=== PATIENT | female | born 1980 | race Asian ===

== ENCOUNTER 2023-01-07 12:56 | Emergency (ER) | payer OTHER ==
[~2023-01-07] VITALS: Ht 165.1 cm; Wt 138.8 kg
[2023-01-07] MEDS ORDERED: FLUTICASONE PRO12 G1 INH (13:15)
[2023-01-07] MEDS ORDERED: LEVOTHYROXINE50 MCG PO (13:16)
[2023-01-07] MEDS ORDERED: GABAPENTIN300 MG PO (13:30)
[2023-01-07] MEDS ORDERED: ATORVASTATIN CA20 MG PO (13:36)
[2023-01-07] MEDS ORDERED: LABETALOL HCL100 MG PO (13:36)
[2023-01-07] MEDS ORDERED: MONTELUKAST SOD10 MG PO (13:36)
[2023-01-07] MEDS ORDERED: CYCLOBENZAPRINE10 MG PO (16:33)
--- NOTE | 2023-01-07 17:11 | EKG ---
[facility] [address] [facility] [place] [address] Signed Normal sinus rhythm with sinus arrhythmia Normal ECG No previous ECGs available Confirmed by EWA CONTRERAS MD ([id number]) on 01/07/2023 5:11:00 PM Electronically Signed By: EWA CONTRERAS MD 01/07/23 1711 PATIENT NAME: MADISON GARCIA Electrocardiogram DATE OF : 82 PHYSICIAN: EWA CONTRERAS MD REPORT #: [id number] REPORT IS CONFIDENTIAL AND NOT TO BE RELEASED WITHOUT AUTHORIZATION
== END 2023-01-07 16:46 | disposition home or self-care (01) ==
LOC: ED 12:56
DX: R07.9 Chest pain, unspecified (principal); M54.12 Radiculopathy, cervical region; Z88.2 Allergy status to sulfonamides; Z88.0 Allergy status to penicillin; Z79.899 Other long term (current) drug therapy
CPT/HCPCS: 36415; 71045; 80053; 83735; 83880; 84484; 85025; 93005; 93010; 99285-25; A9270

== ENCOUNTER 2024-08-07 05:55 | Day surgery (SDC) | payer OTHER ==
[2024-08-05 08:50] VITALS: BP 135/88
[~2024-08-07] VITALS: Ht 165.1 cm; Wt 139.5 kg
[~2024-08-07 05:55] MED LIST: ALOGLIPTIN25 MG PO; ATORVASTATIN CA20 MG PO; CYCLOBENZAPRINE10 MG PO; FLEVOXIN TABLE1 EACH PO; FLONASE SENSIM5.9 ML NS; FLUTICASONE PRO12 G1 INH; GABAPENTIN800 MG PO; HYDRALAZINE HCL10 MG PO; HYDROCHLOROTHIA25 MG PO; K-TAB ER20 MEQ PO; LABETALOL HCL100 MG PO; LACTATED RINGER'S 1,000 ML IV SCH; LEVOTHYROXINE75 MCG PO; LORATADINE10 MG PO; METFORMIN HCL1000 MG PO; METHOCARBAMOL750 MG PO; MONTELUKAST SOD10 MG PO; OMEPRAZOLE20 MG PO; TRULICITY1.5 MG/0.5 SUB-Q; VITAMIN D21250 MCG PO; ZANAFLEX4 MG PO
[2024-08-07 06:03] VITALS: BP 146/73
[2024-08-07] MEDS ORDERED: fentaNYL citrate 100 MCG/2 ML VIAL ONE (06:53)
[2024-08-07] MEDS ORDERED: KETOROLAC TROMETHAMINE 30 MG/ML VIAL ONE (06:53)
[2024-08-07] MEDS ORDERED: ACETAMINOPHEN 1,000 MG/100 ML VIAL ONE (06:53)
[2024-08-07] MEDS ORDERED: LIDOCAINE HCL 2% 5 ML SDV ONE (06:53)
[2024-08-07] MEDS ORDERED: propofoL 200 MG/20 ML VIAL ONE (06:53)
[2024-08-07] MEDS ORDERED: MIDAZOLAM HCL 2 MG/2 ML VIAL ONE (06:53)
[2024-08-07] MEDS ORDERED: ondansetron HCL 4 MG/2 ML VIAL ONE (06:53)
[2024-08-07] MEDS ORDERED: SUGAMMADEX SODIUM 200 MG/2 ML ML ONE (06:55)
[2024-08-07] MEDS ORDERED: SUCCINYLCHOLINE IN 0.9% NACL 200 MG/10 ML SYRINGE ONE (06:55)
[2024-08-07] MEDS ORDERED: ROCURONIUM BROMIDE 50 MG/5 ML SYR ONE (06:55)
[2024-08-07] MEDS ORDERED: IBLOOD GLUCOSE TEST STRIP 1 EA TEST VI PRN ×2 (07:00→07:45)
[2024-08-07] MEDS ORDERED: METOCLOPRAMIDE HCL 10 MG/2 ML SDV IV SCH (07:00)
[2024-08-07] MEDS ORDERED: LIDOCAINE HCL 1% 5 ML SDV INJ ONE (07:00)
[2024-08-07] MEDS ORDERED: FAMOTIDINE 20 MG/ 2 ML VIAL IV SCH (07:00)
[2024-08-07] MEDS ORDERED: droPERidol 5 MG/2 ML VIAL IV PRN (07:45)
[2024-08-07] MEDS ORDERED: NALOXONE HCL 0.4 MG SYR IV PRN ×2 (07:45→08:15)
[2024-08-07] MEDS ORDERED: PROCHLORPERAZINE EDISYLATE 10 MG/2 ML VIAL IV PRN ×2 (07:45→08:15)
[2024-08-07] MEDS ORDERED: ondansetron HCL 4 MG/2 ML VIAL IV PRN ×2 (07:45→08:15)
[2024-08-07] MEDS ORDERED: fentaNYL citrate 50 MCG/ML SDV IV PRN (07:45)
[2024-08-07] MEDS ORDERED: HYDROmorphone HCL 1 MG/ML SYR IV PRN (07:45)
[2024-08-07] MEDS ORDERED: ALBUTEROL SULFATE 8 GM INH ONE (08:06)
--- NOTE | 2024-08-07 08:08 | NUR ---
08/07/24 0808 Yari Page 0800-PATIENT ARRIVED TO PACU ON 6L MASK RR EVEN PATIENT HOB ELEVATED DROWSY COUGHING. JACLYN NOVAK ADMINISTERED 25 MCG FENTANYL IVP. SR. IVF INFUSING. LOBO PAD INTACT. ORIENTED TO PACU. 0803-PATIENT DROWSY DENIES PAIN OR NAUSEA. 6L MASK RR EVEN 100% PATIENT DOES NOT HAVE CPAP.
[2024-08-07] MEDS ORDERED: IBUPROFEN 800 MG TAB PO PRN (08:15)
[2024-08-07] MEDS ORDERED: ondansetron HCL 4 MG TAB PO PRN (08:15)
[2024-08-07] MEDS ORDERED: MAGNESIUM HYDROXIDE/AL HYDROX 30 ML CUP PO PRN (08:15)
[2024-08-07] MEDS ORDERED: MORPHINE SULFATE 10 MG/ML VIAL IV PRN (08:15)
[2024-08-07] MEDS ORDERED: FAMOTIDINE 20 MG TAB PO PRN (08:15)
[2024-08-07] MEDS ORDERED: HYDROCODONE/ACETA 5/325 TAB PO PRN (08:15)
[2024-08-07] MEDS ORDERED: METOCLOPRAMIDE HCL 10 MG/2 ML SDV IV PRN (08:15)
[2024-08-07] MEDS ORDERED: LACTATED RINGER'S 1,000 ML IV SCH (08:15)
[2024-08-07] MEDS ORDERED: MOTRIN IB200 MG PO (08:18)
[2024-08-07 08:34] VITALS: BP 118/69
--- NOTE | 2024-08-07 08:38 | NUR ---
JEAN 0835: PT ARRIVES BACK TO DS FROM PACU. SHE IS SLIGHTLY SLEEPY, NO C/O PAIN OR NAUSEA. SHE IS SIPPING ON WATER. CALL LIGHT WITHIN REACH. DENIES WANTING TO SNACK ON ANYTHING. SO IS AT THE BEDSIDE. NO ADDITIONAL NEEDS AT THIS TIME.
[2024-08-07 09:37] VITALS: BP 111/56
--- NOTE | 2024-08-07 09:40 | NUR ---
JEAN 0935: PT IS MORE ALERT. SHE IS DOING WELL. NO C/O PAIN OR NAUSEA. SHE IS TOLERATING PUDDING AND WATER. DENIES NEED TO USE THE BATHROOM. SHE IS EDUCATED ON DC CRITIERA.
[2024-08-07 10:15] VITALS: BP 140/84
--- NOTE | 2024-08-07 11:08 | NUR ---
1005: PATIENT ASSISTED OOB AND TO BATHROOM. VOID WITHOUT DIFFICULTY. SMALL AMOUNT OF BLOODY DRAINAGE SEEN. VOID APPROXIMATELY 100 ML. GAIT STEADY TO AND FROM BATHROOM. PATIENT GETTING DRESSED. 1015: VS CHECKED. DISHARGE INSTRUCTIONS GIVEN TO PATIENT AND SIGNIFICANT OTHER. 1025: IV DC'D WNL. TIP INTACT. DRESSING APPLIED. PATIENT DISCHARGED TO HOME VIA WHEELCHAIR WITH SIGNFICANT OTHER.
[2024-08-07] MEDS ORDERED: SEVOFLURANE 250 ML BTL INH ONE (14:24)
--- NOTE | 2024-08-10 15:20 | OR ---
[facility] [address] [place], [place] [address] Signed DATE OF OPERATION: 08/07/2024 SURGEON: Yuly Bocanegra MD PREOPERATIVE DIAGNOSIS: Abnormal uterine bleeding, probable polyp on EMB. POSTOPERATIVE DIAGNOSIS: Multiple polyps. PROCEDURE: Hysteroscopy, D and C, resection multiple polyps. ANESTHESIA: General ET. ESTIMATED BLOOD LOSS: Minimal. DRAINS: None. INDICATIONS AND FINDINGS: The patient is a 43-year-old female with a long history of abnormal bleeding. She is morbidly obese and prepping for bariatric surgery. EMB was done and was consistent with a probable polyp. At the time of surgery, exam under anesthesia revealed a normal-size uterus. The uterus sounded 9 cm. There were multiple polyps within the cavity. DESCRIPTION OF PROCEDURE: The patient was prepped and draped in the dorsal lithotomy position. The swan-neck speculum was required to be able to see the cervix. The anterior lip of the cervix was then visualized and grasped with a single-tooth tenaculum. The uterus sounded to 9 cm. The endocervical canal was then serially dilated to #8 dilator without any difficulty. The MyoSure device was then placed and the cavity evaluated. There were multiple polyps. Following this, MyoSure was removed and D and C was done with moderate amount of tissue found. The MyoSure was then reintroduced with the MyoSure Lite and the remaining polyps were resected with this. After the cavity appeared to be clean, the procedure was terminated with removal of the instruments. There was no evidence of bleeding from the cervix after removal of the tenaculum. All sponge and needle counts were correct. She was taken to the recovery room in good condition. Electronically Signed By: YULY BOCANEGRA MD 08/10/24 1520 PATIENT NAME: MADISON GARCIA OPERATIVE REPORT DATE OF : 82 REPORT #: [id number] PHYSICIAN: YULY BOCANEGRA MD PCP: CALLIE RUBY PA-C REPORT IS CONFIDENTIAL AND NOT TO BE RELEASED WITHOUT AUTHORIZATION [address], [place] [address] Signed It should be noted she had evidence of severe laryngeal spasm at the conclusion of the procedure. Yuly Bocanegra MD PJW/MODL /[id number] Copies: ~ Electronically Signed By: YULY BOCANEGRA MD 08/10/24 1520 PATIENT NAME: MADISON GARCIA OPERATIVE REPORT DATE OF : 82 REPORT #: [id number] PHYSICIAN: YULY BOCANEGRA MD PCP: CALLIE RUBY PA-C REPORT IS CONFIDENTIAL AND NOT TO BE RELEASED WITHOUT AUTHORIZATION
--- NOTE | 2024-08-12 18:42 | PATH ---
[facility] [address] [place], [place] [address] Signed SPECIMEN(S): A ENDOMETRIAL CURETTINGS, POLYP SPECIMEN SOURCE: A. ENDOMETRIAL CURETTINGS, POLYP CLINICAL HISTORY: Endometrial polyp FINAL PATHOLOGIC DIAGNOSIS: Endometrium, curettings: - Proliferative phase endometrium. - The presence of endometrial glands and stroma with interspersed fragments of myometrium suggests the possibility of a submucosal leiomyoma. - Features of an endometrial polyp are not definitively present in these sections. COMMENT: The specimen consists of benign proliferative phase endometrium without significant abnormality. There is no evidence of hyperplasia or carcinoma. Chronic endometritis, interstromal fibrin, or products of conception are not identified. TWK MICROSCOPIC EXAMINATION: Histologic sections of all submitted blocks are examined by light microscopy. These findings, together with the gross examination, support the pathologic diagnosis. GROSS DESCRIPTION: The specimen, labeled and designated "Fredy Garcia, per requisition EMC plus polyp," is received in formalin and consists of 3.5 x 2.8 x 1 cm aggregate of rubbery deleon-pink tissue admixed with mucus and congealed blood. The specimen is entirely submitted in cassette A1. AA (under the direct supervision of a pathologist) The Gross Description was prepared using a voice recognition system. The report was reviewed for accuracy; however, sound-alike word errors, addition and/or deletions may occur. If there is any question about this report, please contact Client Services. ADDITIONAL NOTES: Immunohistochemical and/or in situ hybridization studies if performed in this PATIENT NAME: MADISON GARCIA PATHOLOGY DATE OF : 82 REPORT #: [id number] PHYSICIAN: VENUS RENAE PCP: CALLIE RUBY PA-C REPORT IS CONFIDENTIAL AND NOT TO BE RELEASED WITHOUT AUTHORIZATION [facility] [address] [place], [place] [address] Signed case included appropriate positive controls that reacted as expected. This test was developed and its performance characteristics determined by [facility]. It has not been cleared or approved by the U.S. Food and Drug Administration. The FDA has determined that such clearance or approval is not necessary. This test is used for clinical purposes. It should not be regarded as investigational or for research. [facility] is certified under the Clinical Laboratory Improvement Amendments of 1988 (CLIA) as qualified to perform high complexity clinical laboratory testing. PERFORMING LABORATORY: Technical component was performed by [facility], [address] [place] [id number] (CLIA# [id number]). Professional interpretation was performed by [facility], [address] [place] [address] (CLIA#:[id number]). Diagnostician: Mark Gomez MD Pathologist Electronically Signed 08/12/2024 Copies: ~ PATIENT NAME: MADISON GARCIA PATHOLOGY DATE OF : 82 REPORT #: [id number] PHYSICIAN: VENUS PATHOLOGY PCP: CALLIE RUBY PA-C REPORT IS CONFIDENTIAL AND NOT TO BE RELEASED WITHOUT AUTHORIZATION
== END 2024-08-07 10:25 | disposition home or self-care (01) ==
LOC: DS 05:55
PROVIDERS: ATTEND Obstetrics & Gynecology
PROC: 0UB98ZZ Excision of Uterus, Via Natural or Artificial Opening Endoscopic (ICD-10-PCS; principal; 2024-08-07 07:30)
DX: N84.0 Polyp of corpus uteri (principal); I10 Essential (primary) hypertension; E11.9 Type 2 diabetes mellitus without complications; J45.40 Moderate persistent asthma, uncomplicated; E66.01 Morbid (severe) obesity due to excess calories; Z68.43 Body mass index [BMI] 50.0-59.9, adult; Z79.899 Other long term (current) drug therapy; Z88.0 Allergy status to penicillin; Z88.2 Allergy status to sulfonamides
CPT/HCPCS: 00952; 88305; J0131; J0330; J1885; J2003; J2250; J2405; J2704; J2765; J3010; J3490; J7121